=== PATIENT | female | born 1995 | race Two or more races ===

== ENCOUNTER 2024-05-08 03:52 | Emergency (ER) | payer MEDICAID ==
[~2024-05-08] VITALS: Ht 149.9 cm; Wt 68.2 kg
[2024-05-08 03:59] VITALS: BP 114/70; RESP 17; O2SAT 100
[2024-05-08 04:21] LABS: Basophils # (auto) 0 10 ^3/uL (0-0.2); Basophils % (auto) 0.4 % (0.0-2.0); Eosinophils # (auto) 0.3 10 ^3/uL (0-0.8); Eosinophils % (auto) 2.7 % (0.0-7.0); Hematocrit 38.3 % (36.0-46.0); Hemoglobin 12.8 g/dL (12.2-16.2); Lymphocytes # (auto) 4.2 10 ^3/uL (0.4-5.4); Lymphocytes % (auto) 38.3 % (10.0-50.0); Mean Corpuscular Hemoglobin 27.6 pg (28.0-32.0); Mean Corpuscular Hgb Conc. 33.4 g/dL (32.0-36.0); Mean Corpuscular Volume 82.8 fL (80.0-100.0); Monocytes # (auto) 0.9 10 ^3/uL (0-1.3); Monocytes % (auto) 7.7 % (0.0-12.0); Neutrophils # (auto) 5.6 10 ^3/uL (1.6-8.6); Neutrophils % (auto) 50.9 % (37.0-80.0); Platelet Count (auto) 309 10^3/uL (140-450); Red Blood Cells 4.63 10^6/uL (4.0-5.20); Red Cell Distribution Width 14.1 % (11.8-14.3); White Blood Cell 11.1 10^3/uL (4.4-10.8)
[2024-05-08 04:30] LABS: Alanine Aminotransferase 17 U/L (7-40); Albumin 4.4 g/dL (3.2-4.8); Alkaline Phosphatase 94 U/L (46-116); Anion Gap 7 (5-15); Aspartate Aminotransferase 12 U/L (13-40); BUN/Creatinine Ratio 12.5 (10.0-20.0); Blood Urea Nitrogen 9 mg/dL (9-23); Carbon Dioxide 25 mmol/L (20-30); Chloride 107 mmol/L (98-107); Glucose 101 mg/dL (74-106); Potassium 3.1 mmol/L (3.5-5.1); Sodium 139 mmol/L (136-145)
[2024-05-08 04:31] LABS: Bilirubin, Total 0.2 mg/dL (0.2-1.0); Total Protein 7.6 g/dL (5.7-8.2)
[2024-05-08 04:35] LABS: INR 1.02 (0.9-1.15); Partial Thromboplastin Time 28.9 SEC (24.5-34.5); Prothrombin Time 10.8 sec (9.3-11.8)
[2024-05-08 05:10] VITALS: PULSE 72
== END 2024-05-08 05:57 | disposition home or self-care (01) ==
LOC: ER 03:52
DX: R07.89 Other chest pain (principal)
CPT/HCPCS: 36415; 71045; 80053; 83880; 84484; 85025; 85610; 85730; 93005

== ENCOUNTER 2024-08-29 05:31 | Emergency (ER) | payer MEDICAID ==
[~2024-08-29] VITALS: Ht 149.9 cm; Wt 70.7 kg
--- NOTE | 2024-08-29 06:58 | ED.PDOC ---
HPI (NEURO) HPI Comments A 28 YEAR OLD FEMALE PRESENTS TO THE ED WITH COMPLAINT OF MIGRAINE HEADACHE. PATIENT STATES SHE HAS A HISTORY OF MIGRAINE HEADACHES AND HAS BEEN EXPERIENCING A RIGHT SIDED HEADACHE WITH LIGHT SENSITIVITY AND NAUSEA FOR THE PAST 3 DAYS. PATIENT REPORTS SHE HAS BEEN TAKING EXCEDRIN FOR HER PAIN WITH NO IMPROVEMENT IN HER SYMPTOMS. PATIENT DENIES VISION CHANGES, SLURRED SPEECH, ONE-SIDED WEAKNESS, FACIAL DROOP, FEVER, CHILLS, SHORTNESS OF BREATH, CHEST PAIN, ABDOMINAL PAIN, NAUSEA, VOMITING, OR OTHER COMPLAINTS. NO OTHER SYMPTOMS OR MODIFYING FACTORS AT THIS TIME. PATIENT IS ALERT, ORIENTED X 4, AND HAS STEADY GAIT. Chief Complaint: Headache Time Seen by MD: 06:32 Reviewed Notes: Nurses Notes, Medications, Allergies Information Source: Patient Mode of Arrival: Ambulatory Severity: Moderate Headache Severity: Moderate Timing: Days Duration: Since onset, Days Prehospital treatment: None Headache Quality: Aching Headache Location: Other (RIGHT-SIDED) Onset: At rest Circumstances: Spontaneous Symptoms: Other (HEADACHE, LIGHT SENSITIVITY, NAUSEA) Modifying factors: Nothing Associated Signs and Symptoms: Headache, Nausea Past Medical History Past Medical History (Other): MIGRAINE HEADACHES Surgical History: Denies all surgeries PRODUCTION OPERATIONS ENGINEER History: Denies all PRODUCTION OPERATIONS ENGINEER Hx Family History Family History: Unknown Social History Smoker: Non-Smoker Alcohol: Denies ETOH Use Drugs: Denies Drug Use Lives In: Home Constitutional: denies: chills, diaphoresis, fatigue, fever, malaise, sweats, weakness, others EENTM: reports: nose congestion, photophobia; denies: blurred vision, double vision, ear bleeding, ear discharge, ear drainage, ear pain, ear ringing, eye pain, eye redness, hearing loss, mouth pain, mouth swelling, nasal discharge, nose bleeding, nose pain, tearing, throat pain, throat swelling, voice changes, others Respiratory: denies: cough, hemoptysis, orthopnea, SOB at rest, shortness of breath, SOB with excertion, stridor, wheezing, others Cardiovascular: denies: chest pain, dizzy spells, diaphoresis, Dyspnea on exertion, edema, irregular heart beat, left arm pain, lightheadedness, palpitations, PND, syncope, others Gastrointestinal: reports: nausea; denies: abdomen distended, abdominal pain, blood streaked bowels, constipated, diarrhea, dysphagia, difficulty swallowing, hematemesis, melena, poor appetite, poor fluid intake, rectal bleeding, rectal pain, vomiting, others Genitourinary: denies: abnormal vagina bleeding, burning, dyspareunia, dysuria, flank pain, frequency, hematuria, incontinence, pain, , vagina discharge, urgency, others Neurological: reports: headache; denies: dizziness, fainting, left sided numbness, left sided weakness, numbness, paresthesia, pre-existing deficit, ri ght sided numbness, right sided weakness, seizure, speech problems, tingling, tremors, weakness, others Musculoskeletal: denies: back pain, gout, joint pain, joint swelling, muscle pain, muscle stiffness, neck pain, others Integumetry: denies: bruises, change in color, change in hair/nails, dryness, laceration, lesions, lumps, rash, wounds, others Allergic/Immunocompromised: denies: Difficulty Healing, Frequent Infections, Hives, Itching, others Hematologic/Lymphatic: denies: anemia, blood clots, easy bleeding, easy bruising, swollen glands, others Endocrine: denies: excessive hunger, excessive sweating, excessive thirst, excessive urination, flushing, intolerance to cold, intolerance to heat, unexplained weight gain, unexplained weight loss, others Psychiatric: denies: anxiety, bipolar disorder, depression, hopeless, panic disorder, schizophrenia, sleepless, suicidal, others All Other Systems: Reviewed and Negative Physical Exam General Appearance: No Apparent Distress, Normal HEENT: Normal ENT Inspection, PERRL/EOMI, Pharynx Normal, Sinuses (TENDERNESS MAXILLARY WITH POST NASAL DRIP. ), TMs Normal Neck: Full Range of Motion, Non-Tender, Normal, Normal Inspection Respiratory: Chest Non-Tender, Lungs Clear, No Accessory Muscle Use, No Respiratory Distress, Normal Breath Sounds Cardiovascular: No Edema, No JVD, No Murmur, No Gallop, Normal Peripheral Pulses, Regular Rate/Rhythm Breast Exam: Deferred Gastrointestinal: No Organomegaly, Non Tender, No Pulsatile Mass, Normal Bowel Sounds, Soft Genitalia: Deferred Pelvic: Deferred Rectal: Deferred Extremities: No calf tenderness, Normal capillary refill, Normal inspection, Normal range of motion, Non-tender, No pedal edema Musculoskeletal : Apperance: Normal Neurologic: Alert, wastewater project engineer II-XII nml as Tested, No Motor Deficits, Normal Affect, Normal Mood, No Sensory Deficits Cerebellar Function: Normal Reflexes: Normal Skin: Dry, Normal Color, Warm Peripheral Pulses: 2+ carotid (R), 2+ carotid (L) Lymphatic: No Adenopathy Was a procedure done? Was a procedure done?: No Differential Diagnosis (SZ) General Weakness: N/A Headache: Cluster, Migraine, Intracerebral Hemorrhage, Sinusitis X-Ray, Labs, Meds, VS Vital Signs Date Time Temp Pulse Resp B/P (MAP) Pulse Ox O2 Delivery O2 Flow Rate FiO2 08/29/24 07:12 97.8 109 18 97/74 (82) 97 97.8 08/29/24 06:00 97.8 109 18 97/74 (82) 97 Current Medications Medications (Trade) Dose Ordered Sig/Thania Route Start Time Stop Time Status Last Admin Sumatriptan Succinate (Imitrex Inj) 6 mg ONCE ONCE SC 08/29/24 07:00 08/29/24 07:01 DC 08/29/24 07:03 Ondansetron HCl (Zofran Po) 4 mg ONCE ONCE PO 08/29/24 07:00 08/29/24 07:01 DC 08/29/24 07:03 EXAM: CT HEAD WITHOUT CONTRAST HISTORY: RIGHT SIDE HEAD PAIN, NO INJURY. COMPARISON: None TECHNIQUE: Axial images were obtained and reformatted in coronal and sagittal planes. All CT scans at this medical facility are performed using dose modulation techniques as appropriate to a performed exam including the following: Automated exposure control was utilized; adjustment of the MA and/or KV according to patient size; and use of iterative reconstruction technique. CT Dose: CTDI volume is 53.79 mGy. Dose-length product is 971.76 mGy*cm FINDINGS: Supratentorial Region: No evidence for large acute territorial ischemia. No intracranial hemorrhage is noted. Posterior Fossa: No acute abnormality. Brainstem: Unremarkable. Sellar/Suprasellar Region: Unremarkable. Ventricles, Cisterns, Sulci: Age-appropriate. Orbits: Unremarkable. Paranasal Sinuses: Unremarkable. Mastoid Air Cells: Near-complete opacification of the left maxillary sinus and occluded left ostiomeatal complex. Moderate right maxillary sinus mucosal thickening. Vasculature: Unremarkable. Bones/Soft Tissues: No acute abnormality. Leftward deviation of the nasal sep hilary with a left-sided nasal septal spur noted Other: None. IMPRESSION: 1. No acute intracranial process. 2. Chronic bilateral maxillary sinusitis, severe on the left side with the occlusion of the ostiomeatal complex. ATED BY: TERRA MARIE MD DICTATED DATE/TIME: 08/29/24744 SIGNED BY: TERRA MARIE MD SIGNED DATE/TIME: 08/29/24744 CC: X-Ray, Labs, Meds, VS Comment EXTERNAL MEDICAL RECORDS REVIEWED: [NONE] INDEPENDENT HISTORIANS: [NONE] SOCIAL DETERMINANTS OF HEALTH: [NONE] LABS ORDERED: NONE REVIEWED AND INTERPRETED RESULTS: NONE IMAGING ORDERED: CT BRAIN TREATMENTS ORDERED: IMITREX 6MG IM, ZOFRAN 4MG PO PROCEDURES PERFORMED: NONE CRITICAL CARE TIME: NONE I HAVE DISCUSSED THE PATIENT WITH THE ATTENDING PHYSICIAN DR. POND AND HE AGREES WITH THE PATIENT'S PLAN OF CARE AND DISPOSITION. BASED ON HISTORY OF PRESENT ILLNESS, AND PHYSICAL EXAM, PATIENT WILL BE DISCHARGED HOME. DISCUSSED PLAN FOR DISCHARGE HOME WITH RX [AMOXICILLIN, PREDNISONE, AND IMITREX]. MEDICATION WARNINGS GIVEN. SHARED DECISION MAKING: DISCUSSED WITH PATIENT THAT THEIR WORKUP WAS NORMAL. PATIENT INSTRUCTED TO FOLLOW UP WITH PRIMARY CARE PROVIDER IN 1-2 DAYS FOR RE- EVALUATION OF SYMPTOMS. PATIENT VERBALIZES UNDERSTANDING TO RETURN TO ED FOR NEW OR WORSENING SYMPTOMS OR IF FOLLOW UP WITH PCP CANNOT BE OBTAINED. PATIENT FEELS COMFORTABLE GOING HOME AT THIS TIME. ALL QUESTIONS ADDRESSED AT TIME OF DISCHAR GE. Images Reviewed?: Images reviewed and evaluated by me Time of 1ST Reevaluation: 08:00 Reevaluation 1ST: Improved Patient Education/Counseling: Diagnosis, Treatment, Need For Follow Up Family Education/Counseling: Diagnosis, Treatment, Need For Follow Up Medical Screening: No EMC Exist At This Time Departure 1 Departure Time of Disposition: 08:10 Impression: Primary Impression: Migraine headache without aura Qualified Codes: G43.009 - Migraine without aura, not intractable, without status migrainosus Additional Impression: Chronic sinusitis Qualified Codes: J32.0 - Chronic maxillary sinusitis Disposition: HOME / SELF CARE / HOMELESS Condition: Stable Additional Instructions: FOLLOW-UP WITH PCP IN 1 TO 2 DAYS. TAKE MEDICATIONS PRESCRIBED. RETURN TO ED FOR ANY NEW OR WORSENING SYMPTOMS. e-Prescriptions Methylprednisolone (Medrol Dosepak) 4 Mg Samuel 4 MG PO UD, #21 TAB UAD Prov: JOANN DE LA PAZ 08/29/24 Amoxicillin Trihydrate (Amoxicillin) 875 Mg Tab 1 TAB PO BID, #20 TAB Prov: JOANN DE LA PAZ 08/29/24 Sumatriptan Succinate (Imitrex) 50 Mg Tab 1 TAB PO BID, #20 TAB Prov: JOANN DE LA PAZ 08/29/24 Discharged With: Self Critical Care Note Critical Care Time?: No Stability Stability form required: No I personally scribed for JOANN DE LA PAZ ([email or web address]) on 08/29/24 at 06:58. Electronically submitted by Reilly Adams ([employer]). I personally scribed for JOANN DE LA PAZ ([email or web address]) on 08/29/24 at 07:53. Electronically submitted by Reilly Adams ([email or web address]). JOANN DE LA PAZ Aug 29, 2024 06:58
[2024-08-29] MEDS: ONDANSETRON ODT 4 MG TAB PO ONE (07:03)
[2024-08-29] MEDS: SUMAtriptan SUCCINATE 6 MG/0.5 ML VL SC ONE (07:03)
[2024-08-29 07:12] VITALS: BP 97/74; PULSE 109; RESP 18; TEMP 97.8; O2SAT 97
--- NOTE | 2024-08-29 07:47 | DVH ---
EXAM: CT HEAD WITHOUT CONTRAST HISTORY: RIGHT SIDE HEAD PAIN, NO INJURY. COMPARISON: None TECHNIQUE: Axial images were obtained and reformatted in coronal and sagittal planes. All CT scans at this medical facility are performed using dose modulation techniques as appropriate t o a performed exam including the following: Automated exposure control was utilized; adjustment of th e MA and/or KV according to patient size; and use of iterative reconstruction technique. CT Dose: CTDI volume is 53.79 mGy. Dose-length product is 971.76 mGy*cm FINDINGS: Supratentorial Region: No evidence for large acute territorial ischemia. No intracranial hemorrhage is noted. Posterior Fossa: No acute abnormality. Brainstem: Unremarkable. Sellar/Suprasellar Region: Unremarkable. Ventricles, Cisterns, Sulci: Age-appropriate. Orbits: Unremarkable. Paranasal Sinuses: Unremarkable. Mastoid Air Cells: Near-complete opacification of the left maxillary sinus and occluded left ostiome atal complex. Moderate right maxillary sinus mucosal thickening. Vasculature: Unremarkable. Bones/Soft Tissues: No acute abnormality. Leftward deviation of the nasal septum with a left-sided n meghann septal spur noted Other: None. IMPRESSION: 1. No acute intracranial process. 2. Chronic bilateral maxillary sinusitis, severe on the left side with the occlusion of the ostiomeat al complex.
[2024-08-29] MEDS ORDERED: AMOX875T3 PO (07:55)
[2024-08-29] MEDS ORDERED: METH4PAK PO (07:55)
[2024-08-29] MEDS ORDERED: SUMA50TA2 PO (07:55)
== END 2024-08-29 07:59 | disposition home or self-care (01) ==
LOC: ER 05:31
DX: G43.009 Migraine without aura, not intractable, without status migrainosus (principal); J32.0 Chronic maxillary sinusitis
CPT/HCPCS: 70450; 96372; 99285; J3030; Q0162